=== PATIENT | male | born 1995 | race Caucasian/White ===

== ENCOUNTER 2020-03-03 09:57 | Emergency (ER) | payer OTHER, MEDICAID ==
[~2020-03-03] VITALS: Ht 172.7 cm; Wt 55.3 kg
[2020-03-03] MEDS ORDERED: IOHEXOL 300 MG/ML 100ML BOTTLE IJ ONE (10:43)
[2020-03-03 13:02] VITALS: BP 133/91
== END 2020-03-03 14:15 | disposition home or self-care (01) ==
LOC: ER 09:57
DX: S39.012A Strain of muscle, fascia and tendon of lower back, initial encounter (principal); S70.02XA Contusion of left hip, initial encounter; S20.211A Contusion of right front wall of thorax, initial encounter; V89.2XXA Person injured in unspecified motor-vehicle accident, traffic, initial encounter; Y93.89 Activity, other specified; Y92.410 Unspecified street and highway as the place of occurrence of the external cause; Y99.8 Other external cause status
CPT/HCPCS: 70450; 71260; 72125; 73700; 74177; 99285; Q9967

== ENCOUNTER 2021-01-05 17:35 | Emergency (ER) | payer SELFPAY ==
[~2021-01-05] VITALS: Ht 167.6 cm; Wt 54.4 kg
[2021-01-05] MEDS ORDERED: ONDANSETRON ODT 4 MG TAB PO ONE (18:30)
[2021-01-05] MEDS ORDERED: ACETAMINOPHEN 325 MG TAB PO ONE (18:30)
[2021-01-05] MEDS ORDERED: ACETAMINOPHEN/CODEINE#3 (300/30mg) TAB PO ONE (19:30)
[2021-01-05 21:05] VITALS: BP 130/81
== END 2021-01-05 21:16 | disposition home or self-care (01) ==
LOC: ER 17:35
DX: S01.111A Laceration without foreign body of right eyelid and periocular area, initial encounter (principal); S63.8X1A Sprain of other part of right wrist and hand, initial encounter; R51.9 Headache, unspecified; V49.49XA Driver injured in collision with other motor vehicles in traffic accident, initial encounter; Y93.89 Activity, other specified; Y92.488 Other paved roadways as the place of occurrence of the external cause; Y99.8 Other external cause status
CPT/HCPCS: 12013; 70450; 70486; 71250; 72125; 73110; 73130; 93005; 99285; Q0162

== ENCOUNTER 2022-01-08 14:23 | Emergency (ER) | payer SELFPAY ==
[~2022-01-08] VITALS: Ht 170.2 cm; Wt 56.7 kg
[2022-01-08 15:20] VITALS: BP 145/93
[2022-01-08] MEDS ORDERED: methylPREDNISolone SOD SUCC 125 MG/2 ML VL IM ONE (16:45)
[2022-01-08] MEDS ORDERED: PRED20TA2 PO (16:52)
[2022-01-08] MEDS ORDERED: CEPH-509 PO (16:52)
[2022-01-08] MEDS ORDERED: [UNRECOGNIZED DRUG - CODE] EX (16:52)
== END 2022-01-08 17:09 | disposition home or self-care (01) ==
LOC: ER 14:23
DX: L23.9 Allergic contact dermatitis, unspecified cause (principal); F12.10 Cannabis abuse, uncomplicated
CPT/HCPCS: 96372; 99283; J2930